=== PATIENT | female | born 1940 | race Caucasian/White ===

== ENCOUNTER 2016-10-12 12:00 | Outpatient (CLI) | payer MEDICARE, BC ==
--- NOTE | 2016-10-13 17:48 | Mammography Report ---
DIGITAL SCREENING MAMMOGRAM: 10/12/2016 CLINICAL INDICATION: A 75-year-old for screening. COMPARISON: 01/2013, 05/2012, 08/2011, 01/2011, 06/2010, 11/2006. TECHNIQUE: Routine CC and MLO projections were obtained of the breasts. The breasts demonstrate scattered fibroglandular densities bilaterally. Coarse and punctate, typical ly benign calcifications are present. There is a possible developing density in the left lower outer posterior breast. Further evaluation with spot compression views and possible ultrasound is recomme nded. IMPRESSION: INCOMPLETE EXAMINATION. RECOMMENDATION: ADDITIONAL EVALUATION OF THE LEFT BREAST ABOVE. BIRADS CATEGORY: 0, INCOMPLETE. STANDARD QUALIFYING STATEMENTS 1. This examination was reviewed with the aid of Computed-Aided Detection (CAD). 2. A negative or benign imaging report should not delay biopsy if clinically suspicious findings are present. Consider surgical consultation if warranted. More than 5% of cancers are not identified b y imaging. 3. Dense breasts may obscure an underlying neoplasm. JOB #: [id number] EXT JOB #:[id number]
== END 2016-10-12 12:01 | disposition home or self-care (01) ==
LOC: DI.S 12:00
PROVIDERS: ATTEND Family Medicine
DX: Z12.31 Encounter for screening mammogram for malignant neoplasm of breast (principal); R92.2 Inconclusive mammogram
CPT/HCPCS: 77067

== ENCOUNTER 2016-11-05 11:06 | Outpatient (CLI) | payer MEDICARE, BC ==
--- NOTE | 2016-11-05 14:17 | Ultrasound Report ---
ULTRASOUND LEFT BREAST: 11/05/2016 CLINICAL INDICATION: Persistent 5 mm nodule on mammogram. TECHNIQUE: Real-time scanning was performed with admitting representative static images obtained. FINDINGS: Ultrasound of the left lower outer posterior breast was performed. At the 5 o'clock posit ion, 10 cm from the nipple, there is a 5 x 4 x 3 mm lymph node, accounting for the mammographic abnor mality. No sonographically suspicious findings are identified. IMPRESSION: BENIGN FINDINGS, WITH A SMALL LYMPH NODE ACCOUNTING FOR THE MAMMOGRAPHIC ABNORMALITY. RECOMMENDATION: Routine annual screening unless otherwise clinically indicated. BI-RADS category 2, benign findings. JOB #: [id number] EXT JOB #:[id number]
--- NOTE | 2016-11-05 18:19 | Mammography Report ---
DIGITAL DIAGNOSTIC LEFT MAMMOGRAM: 11/05/2016 CLINICAL INDICATION: Density left lower outer quadrant on screening. TECHNIQUE: Left true lateral and spot compression views. COMPARISON: 10/12/2016, 01/25/2013, 05/24/2012, 09/08/2011, 02/09/2011, 07/16/2010, 06/25/2010, 11/20. The left breast again demonstrates scattered fibroglandular densities. The density in question persi sts on additional compression, measuring 6 mm. No associated calcifications are seen. Please also r efer to left breast ultrasound of the same day. IMPRESSION: BENIGN FINDINGS, WITH AN INTRAMAMMARY LYMPH NODE ACCOUNTING FOR THE MAMMOGRAPHIC ABNORMA LITY. RECOMMENDATION: ROUTINE ANNUAL SCREENING UNLESS OTHERWISE CLINICALLY INDICATED. BIRADS CATEGORY: 2, BENIGN FINDINGS. STANDARD QUALIFYING STATEMENTS 1. This examination was reviewed with the aid of Computed-Aided Detection (CAD). 2. A negative or benign imaging report should not delay biopsy if clinically suspicious findings are present. Consider surgical consultation if warranted. More than 5% of cancers are not identified b y imaging. 3. Dense breasts may obscure an underlying neoplasm. JOB #: [id number] EXT JOB #:[id number]
== END 2016-11-05 11:07 | disposition home or self-care (01) ==
LOC: DI 11:06
PROVIDERS: ATTEND Family Medicine
DX: R92.8 Other abnormal and inconclusive findings on diagnostic imaging of breast (principal)
CPT/HCPCS: 76642; G0206

== ENCOUNTER 2019-12-23 09:01 | Outpatient (CLI) | payer BC, MEDICARE ==
[2019-12-23 14:10] LABS: ALBUMIN/GLOBULIN RATIO 1.3 (1.0-2.2); ALKALINE PHOSPHATASE 90 IU/L (42-121); ALT ALANINE AMINOTRANSFERASE 17 IU/L (10-60); AST ASPARTATE AMINOTRANSFERASE 16 IU/L (10-42); BUN - BLOOD UREA NITROGEN 14 mg/dL (6-20); CALCIUM 9.2 mg/dL (8.5-10.3); CARBON DIOXIDE - CO2 30 mmol/L (21-32); CHLORIDE 99 mmol/L (101-111); CHOL/HDL RATIO 4.1 (<4.4); CHOLESTEROL 260 mg/dL; CREATININE 0.7 mg/dL (0.4-1.0); GLUCOSE 104 mg/dL (70-100); HDL CHOLESTEROL 63 mg/dL; LDL CHOLESTEROL,CALCULATED 171 mg/dL; LDL/HDL RATIO 2.7 (<4.4); SODIUM 137 mmol/L (135-145); TOTAL PROTEIN 7.2 g/dL (6.7-8.2); VLDL CHOLESTEROL 26 mg/dL
== END 2019-12-23 09:02 | disposition home or self-care (01) ==
LOC: LAB.S 09:01
PROVIDERS: ATTEND Family Medicine
DX: I10 Essential (primary) hypertension (principal)
CPT/HCPCS: 36415; 80053; 80061; 83721

== ENCOUNTER 2021-03-27 07:23 | Outpatient (CLI) | payer MEDICARE ==
[2021-03-27 16:00] LABS: ALBUMIN 3.8 g/dL (3.2-5.5); ALBUMIN/GLOBULIN RATIO 1.3 (1.0-2.2); ALKALINE PHOSPHATASE 93 IU/L (42-121); ALT ALANINE AMINOTRANSFERASE 19 IU/L (10-60); AST ASPARTATE AMINOTRANSFERASE 16 IU/L (10-42); BILIRUBIN,TOTAL 0.8 mg/dL (0.2-1.0); BUN - BLOOD UREA NITROGEN 16 mg/dL (6-20); CALCIUM 9.4 mg/dL (8.5-10.3); CARBON DIOXIDE - CO2 31 mmol/L (21-32); CHLORIDE 100 mmol/L (101-111); CHOL/HDL RATIO 4.1 (<4.4); CHOLESTEROL 279 mg/dL; CREATININE 0.6 mg/dL (0.4-1.0); GFR - MDRD 97 (>89); GLUCOSE 108 mg/dL (70-100); HDL CHOLESTEROL 68 mg/dL; LDL CHOLESTEROL,CALCULATED 190 mg/dL; LDL/HDL RATIO 2.8 (<4.4); POTASSIUM 3.3 mmol/L (3.5-5.0); SODIUM 139 mmol/L (135-145); TOTAL PROTEIN 6.7 g/dL (6.7-8.2); TRIGLYCERIDES 106 mg/dL; VLDL CHOLESTEROL 21 mg/dL
== END 2021-03-27 07:24 | disposition home or self-care (01) ==
LOC: LAB.S 07:23
PROVIDERS: ATTEND Family Medicine
DX: I10 Essential (primary) hypertension (principal)
CPT/HCPCS: 36415; 80053; 80061; 83721

== ENCOUNTER 2021-07-27 08:58 | Emergency (ER) | payer MEDICARE ==
[2021-07-27 09:51] LABS: BASOPHILS # (AUTO) 0.1 10^3/uL (0.0-0.1); BASOPHILS % (AUTO) 0.5 %; EOSINOPHILS % (AUTO) 0.1 %; HCT - HEMATOCRIT 44.4 % (37.0-47.0); HGB - HEMOGLOBIN 14.4 g/dL (12.0-16.0); LYMPHOCYTES # (AUTO) 1.2 10^3/uL (1.5-3.5); LYMPHOCYTES % (AUTO) 10.4 %; MEAN CORPUSCULAR HEMOGLOBIN 28.9 pg (27.0-31.0); MEAN CORPUSCULAR HGB CONC 32.4 g/dL (32.0-36.0); MEAN CORPUSCULAR VOLUME 89.2 fL (81.0-99.0); MEAN PLATELET VOLUME 10.6 fL (7.9-10.8); MONOCYTES # (AUTO) 0.6 10^3/uL (0.0-1.0); MONOCYTES % (AUTO) 5.1 %; NEUTROPHILS # (AUTO) 9.4 10^3/uL (1.5-6.6); NEUTROPHILS % (AUTO) 83.5 %; PLT - PLATELET COUNT 268 10^3/uL (130-450); RED BLOOD COUNT 4.98 10^6/uL (4.20-5.40); RED CELL DISTRIBUTION WIDTH 14.1 % (12.0-15.0); WHITE BLOOD COUNT 11.3 x10^3/uL (4.8-10.8)
[2021-07-27 10:03] LABS: ALBUMIN 4.5 g/dL (3.2-5.5); ALBUMIN/GLOBULIN RATIO 1.3 (1.0-2.2); BILIRUBIN,TOTAL 0.6 mg/dL (0.2-1.0); CALCIUM 9.7 mg/dL (8.5-10.3); CREATININE 0.7 mg/dL (0.4-1.0); POTASSIUM 3.4 mmol/L (3.5-5.0)
--- NOTE | 2021-07-27 12:23 | CT Report ---
PROCEDURE: Abdomen/Pelvis WO INDICATIONS: RLQ PAIN BLOOD PER RECTUM TECHNIQUE: Noncontrast 5 mm thick sections acquired from the diaphragms to the symphysis. 5 mm coronal and sagi ttal reformats were then performed. For radiation dose reduction, the following was used: automated exposure control, adjustment of mA and/or kV according to patient size. COMPARISON: None. FINDINGS: Image quality: Excellent. ABDOMEN: Lung bases: Right middle lobe and lingula scars and atelectasis. Heart size is normal. Small hiatal hernia. Solid organs: Liver is normal in size. Gallbladder is normal. There are calcified chondromas in spl een. Spleen is normal in size. Pancreas is normal in contours. No adrenal nodules. Kidneys are nor mal in size, without hydronephrosis or nephrolithiasis. Peritoneum and bowel: Unenhanced bowel loops demonstrate normal wall thickness and caliber. Appendi x is normal. Mild diffuse pericolonic fat stranding is seen involving the descending colon, suggestin g colitis. There are scattered colonic diverticula. This mild fat stranding adjacent to a diverticulu m in the sigmoid colon, suggesting mild diverticulitis. No free fluid or air. Nodes and vessels: No retroperitoneal or mesenteric adenopathy by size criteria. Aorta and inferior vena cava are normal in caliber. Miscellaneous: No ventral hernias. PELVIS: Genitourinary: Bladder wall thickness is normal. Miscellaneous: No inguinal hernias or adenopathy. Bones: No suspicious bony lesions. No vertebral body compression fractures. Scoliosis and moderate degenerative changes in lumbar spine. IMPRESSION: 1. There is mild diffuse pericolonic fat stranding involving the descending colon suspicious for coli tis. Etiology may be infectious colitis or inflammatory bowel disease. Ischemia is felt less likely. Recommend clinical correlation. 2. Colonic diverticulosis. There is subtle fat stranding around a diverticulum in the sigmoid colon. Mild diverticulitis may be present. 3. Normal appendix. 4. Remote: granulomatous of spleen. Reviewed by: Tito De La Vega MD on 07/27/2021 11:21 AM [facility] Approved by: Tito De La Vega MD on 07/27/2021 11:21 AM [facility] Station ID: [id number]
--- NOTE | 2021-07-27 12:52 | ED Physician Documentation ---
PD HPI GI BLEED - Stated complaint Stated Complaint: BLOOD IN STOOL/DIARRHEA - Chief complaint Chief Complaint: Abd Pain - History obtained from History obtained from: Patient - History of Present Illness Timing - onset: Last night Timing - duration: Hours Timing - details: Abrupt onset, Still present Associated symptoms: BRBPR, Diarrhea Improved by: BM Worsened by: Other (standing) Similar symptoms before: Has not had sx before Recently seen: Not recently seen - Additional information Additional information: 80-year-old Jordana Perez reports that yesterday evening she felt the urge to go to the bathroom she had severe pain in her abdomen associated with that and she was able to have a large diarrheal bowel movement followed by some blood. She had recurrence of the blood throughout the night and comes into the emergency department this morning with a 12-hour history of rectal bleeding about a teaspoon at a time. Review of Systems Constitutional: denies: Fever Eyes: denies: Decreased vision Ears: denies: Ear pain Nose: denies: Congestion Throat: denies: Sore throat Cardiac: denies: Chest pain / pressure, Palpitations Respiratory: denies: Dyspnea, Cough GI: reports: Abdominal Pain, Diarrhea, Bloody / black stool : denies: Dysuria, Frequency PD PAST MEDICAL HISTORY - Past Medical History Past Medical History: Yes Cardiovascular: Hypertension Respiratory: None Endocrine/Autoimmune: None GI: None : None HEENT: Chronic vision loss Psych: None Musculoskeletal: None Derm: None - Past Surgical History General: Colonoscopy Ortho: Other /EQUIPMENT MAINTENANCE SUPERVISOR: Hysterectomy - Present Medications Home Medications: Ambulatory Orders Medication Instructions Recorded Confirmed atenoloL [Atenolol] 100 mg PO DAILY 01/20/17 01/20/17 hydroCHLOROthiazide 25 mg PO DAILY 01/20/17 01/21/17 [Hydrochlorothiazide] lisinopriL [Lisinopril] 10 mg PO DAILY 01/20/17 01/20/17 Ciprofloxacin HCl [Cipro] 500 mg PO BID #14 tablet 07/27/21 metroNIDAZOLE [Flagyl] 500 mg PO BID 7 Days #14 tablet 07/27/21 - Allergies Allergies/Adverse Reactions: Allergies Allergy/AdvReac Type Severity Reaction Status Date / Time Iodine and Iodide Containing AdvReac Hives Verified 07/27/21 09:08 Produc - Social History Does the pt smoke?: No Smoking Status: Never smoker PD ED PE NORMAL - Vitals Vital signs reviewed: Yes (Hypertensive) - General General: Alert and oriented X 3, No acute distress, Well developed/nourished - HEENT HEENT: Atraumatic, PERRL, EOMI - Neck Neck: Supple, no meningeal sign, No bony TTP - Cardiac Cardiac: RRR, No murmur - Respiratory Respiratory: No respiratory distress, Clear bilaterally - Abdomen Abdomen: Normal bowel sounds, Soft, Non distended, No organomegaly, Other (Minimal tenderness to the right lower quadrant with deep palpation) - Back Back: No CVA TTP, No spinal TTP - Derm Derm: Normal color, Warm and dry, No rash - Extremities Extremities: No deformity, No edema - Neuro Neuro: Alert and oriented X 3, 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, No motor deficit, No sensory deficit, Normal speech Eye Opening: Spontaneous Motor: Obeys Commands Verbal: Oriented GCS Score: 15 - Psych Psych: Normal mood, Normal affect Results - Vitals Vitals: Vital Signs - 24 hr 07/27/21 07/27/21 07/27/21 09:05 09:48 11:15 Temperature 36.4 C L 98.8 C H Heart Rate 69 62 60 Respiratory 16 16 16 Rate Blood Pressure 159/74 H 157/86 H 169/64 H O2 Saturation 100 97 99 07/27/21 07/27/21 13:00 13:09 Temperature Heart Rate 64 64 Respiratory 16 16 Rate Blood Pressure 160/77 H 160/77 H O2 Saturation 100 100 Oxygen O2 Source Room air - Labs Labs: Laboratory Tests 07/27/21 07/27/21 07/27/21 09:37 09:37 09:37 WBC 11.3 H RBC 4.98 Hgb 14.4 Hct 44.4 MCV 89.2 MCH 28.9 MCHC 32.4 RDW 14.1 Plt Count 268 MPV 10.6 Neut # (Auto) 9.4 H Lymph # (Auto) 1.2 L Leslie # (Auto) 0.6 Eos # (Auto) 0.0 Baso # (Auto) 0.1 Absolute Nucleated RBC 0.00 Nucleated RBC % 0.0 PT 11.0 INR 1.0 Sodium Potassium Chloride Carbon Dioxide Anion Gap BUN Creatinine Estimated GFR (MDRD) Glucose Calcium Total Bilirubin AST ALT Alkaline Phosphatase Total Protein Albumin Globulin Albumin/Globulin Ratio Lipase Blood Type O POSITIVE Antibody Screen NEGATIVE 07/27/21 09:37 WBC RBC Hgb Hct MCV MCH MCHC RDW Plt Count MPV Neut # (Auto) Lymph # (Auto) Leslie # (Auto) Eos # (Auto) Baso # (Auto) Absolute Nucleated RBC Nucleated RBC % PT INR Sodium 138 Potassium 3.4 L Chloride 101 Carbon Dioxide 27 Anion Gap 10.0 BUN 20 Creatinine 0.7 Estimated GFR (MDRD) 81 L Glucose 105 H Calcium 9.7 Total Bilirubin 0.6 AST 17 ALT 17 Alkaline Phosphatase 99 Total Protein 8.0 Albumin 4.5 Globulin 3.5 Albumin/Globulin Ratio 1.3 Lipase 41 Blood Type Antibody Screen - Rads (name of study) CT ab/pel Radiology: Prelim report reviewed (Impression: 1. There is mild diffuse pericolonic fat stranding involving the descending colon suspicious for colitis. Etiology may be infectious colitis or inflammatory bowel disease. Ischemia is felt less likely. Recommend clinical correlation. Colonic diverticulosis. ), Final report received ( There is subtle fat stranding around a diverticulum in the sigmoid colon. Mild diverticulitis cannot be may be present. Normal appendix. Remote granulomatous of spleen), EMP read indepedently, See rad report PD MEDICAL DECISION MAKING - ED course Complexity details: reviewed old records, reviewed results, re-evaluated patient, considered differential, d/w patient, d/w family ED course: 80-year-old female with acute bright red blood per rectum beginning last night has normal-appearing blood counts and does have blood in the rectal vault. I am not finding evidence of acute bleeding at the rectum itself. She has some minimally inflamed external hemorrhoids and I do not palpate internal hemorrhoids. There is blood on the glove. Her CAT scan is concerning for colitis and for a small section of diverticulitis. I consulted our surgeon Dr. Sanchez who recommends treatment for the diverticulits and followup with her primary for a referral for scoping in the next 4-6 weeks. Departure - Departure Disposition: 01 Home, Self Care Clinical Impression: Acute lower GI bleeding, Diverticulitis, Colitis Condition: Stable Instructions: ED Diverticulitis, ED Hematochezia Stable Follow-Up: Yasmeen Hirsch MD [Primary Care Provider] - Italo Sanchez MD [Provider Admit Priv/Credential] - Prescriptions: Ciprofloxacin HCl [Cipro] 500 mg PO BID #14 tablet metroNIDAZOLE [Flagyl] 500 mg PO BID 7 Days #14 tablet Comments: Jordana, today it looks like your blood counts are stable and there is evidence on your CAT scan of diverticulitis as well as the possibility of colitis. Both of these can cause lower GI bleeding. I have consulted our surgeon and she has recommended we treat the diverticulitis and have a follow-up for colonoscopy in the next 4 to 6 weeks. If your bleeding becomes excessive or you become lightheaded or short of breath this is a reason to return for a repeat blood count.Medications have been E scribed to Gisela Christensen in [place] Discharge Date/Time: 07/27/21 13:09
[2021-07-27 13:09] VITALS: BP 160/77
== END 2021-07-27 13:09 | disposition home or self-care (01) ==
LOC: ED 08:58
DX: K57.33 Diverticulitis of large intestine without perforation or abscess with bleeding (principal)
CPT/HCPCS: 36415; 80053; 83690; 85025; 85610; 86850; 86900; 86901; 99284

== ENCOUNTER 2021-09-29 09:06 | Day surgery (SDC) | payer MEDICARE ==
--- NOTE | 2021-09-29 09:30 | ANESTHESIA ---
Pre-Anesthesia VS, & Labs - Diagnosis diverticulitis, hx polyps - Procedure colonoscopy Height: 5 ft 7 in - NPO >8 hours - Is Patient ?: No - Lab Results Lab results reviewed: Yes Home Medications and Allergies atenoloL [Atenolol] 100 mg PO DAILY 01/20/17 hydroCHLOROthiazide [Hydrochlorothiazide] 25 mg PO DAILY 01/20/17 lisinopriL [Lisinopril] 10 mg PO DAILY 01/20/17 Allergies/Adverse Reactions: Allergies Allergy/AdvReac Type Severity Reaction Status Date / Time Iodine and Iodide Containing AdvReac Hives Verified 09/29/21 09:25 Produc Anes History & Medical History - Anesthetic History Anesthesia Complications: reports: No previous complications Family history of Anesthesia Complications: Denies Family history of Malignant Hyperthermia: Denies - Medical History Cardiovascular: reports: Hypertension Pulmonary: reports: None Gastrointestinal: reports: None Urinary: reports: None Musculoskeletal: reports: None Endocrine/Autoimmune: reports: None Skin: reports: None Smoking Status: Never smoker - Surgical History General: reports: Colonoscopy Gynecologic: reports: Hysterectomy Orthopedic: reports: Other Exam General: Alert, Oriented x3, Cooperative Dental: WNL Mouth Openin Fingerbreadth Neck Mobility: Normal Mallampati classification: II Thyromental Distance: 4-6 cm Respiratory: Lungs clear, Normal breath sounds, No respiratory distress Cardiovascular: Regular rate Neurological: Normal speech Mental/Cognitive Status: Alert/Oriented X3, Normal for patient Cognitive Status: Within normal limits Plan Anesthesia Type: Total IV Consent for Procedure(s) Verified and Reviewed: Yes Code Status: Attempt Resuscitation ASA classification: 2-Mild systemic disease Is this case an emergency?: No
[2021-09-29] MEDS ORDERED: LACTATED RINGERS 1,000 ML IV ONE (09:35)
[2021-09-29] MEDS ORDERED: PROPOFOL 500 MG/50 ML 500 MG/50 ML VIAL ONE (09:56)
[2021-09-29] MEDS ORDERED: MIDAZOLAM 2 MG/2 ML VIAL ONE (09:56)
[2021-09-29] MEDS ORDERED: LACTATED RINGERS 500 ML IV ONE (10:27)
--- NOTE | 2021-09-29 10:35 | ANESTHESIA POST OP EVALUATION ---
Anesthesia Post Eval - Post Anesthesia Eval Vitals: Last Vital Signs Temp 36.1 C L 09/29/21 10:27 Pulse 63 09/29/21 10:27 Resp 16 09/29/21 10:27 BP 114/56 L 09/29/21 10:27 Pulse Ox 98 09/29/21 10:27 CV Function Including HR & BP: Stable Pain Control: Satisfactory Nausea & Vomiting: Negative Mental Status: Baseline Respiratory Status: Airway Patent Hydration Status: Satisfactory Anesthesia Complications: None
[2021-09-29 10:50] VITALS: BP 141/60
== END 2021-09-29 09:07 | disposition home or self-care (01) ==
LOC: SDS 09:06
PROVIDERS: ATTEND Surgery
PROC: 0DBM8ZX Excision of Descending Colon, Via Natural or Artificial Opening Endoscopic, Diagnostic (ICD-10-PCS; 2021-09-29)
PROC: 0DBK8ZX Excision of Ascending Colon, Via Natural or Artificial Opening Endoscopic, Diagnostic (ICD-10-PCS; principal; 2021-09-29 10:00)
DX: K57.31 Diverticulosis of large intestine without perforation or abscess with bleeding (principal); Z86.010 Personal history of colon polyps; D12.4 Benign neoplasm of descending colon; D12.2 Benign neoplasm of ascending colon; K64.8 Other hemorrhoids; K64.4 Residual hemorrhoidal skin tags; I10 Essential (primary) hypertension
CPT/HCPCS: 45380; J7120

== ENCOUNTER 2023-06-28 07:19 | Outpatient (CLI) | payer MEDICARE ==
[2023-06-28 14:59] LABS: ALBUMIN/GLOBULIN RATIO 1.4 (1.0-2.2); ALKALINE PHOSPHATASE 92 IU/L (42-121); ALT ALANINE AMINOTRANSFERASE 13 IU/L (10-60); AST ASPARTATE AMINOTRANSFERASE 15 IU/L (10-42); BILIRUBIN,TOTAL 0.7 mg/dL (0.2-1.0); BUN - BLOOD UREA NITROGEN 16 mg/dL (6-20); CALCIUM 9.9 mg/dL (8.5-10.3); CARBON DIOXIDE - CO2 32 mmol/L (21-32); CHLORIDE 102 mmol/L (101-111); CHOL/HDL RATIO 3.8 (<4.4); CHOLESTEROL 247 mg/dL; CREATININE 0.7 mg/dL (0.6-1.3); GFR - MDRD 81 (>89); GLUCOSE 97 mg/dL (74-104); HDL CHOLESTEROL 65 mg/dL; LDL CHOLESTEROL,CALCULATED 159 mg/dL; LDL/HDL RATIO 2.4 (<4.4); POTASSIUM 4.3 mmol/L (3.5-4.5); SODIUM 138 mmol/L (135-145); TOTAL PROTEIN 6.9 g/dL (6.4-8.9); TRIGLYCERIDES 115 mg/dL (48-352); VLDL CHOLESTEROL 23 mg/dL
== END 2023-06-28 07:20 | disposition home or self-care (01) ==
LOC: LAB.S 07:19
PROVIDERS: ATTEND Family Medicine
DX: I10 Essential (primary) hypertension (principal)
CPT/HCPCS: 36415; 80053; 80061; 83721